=== PATIENT | male | born 1970 | race Caucasian/White ===

== ENCOUNTER 2020-10-29 15:24 | Inpatient (IN) | payer OTHER ==
[~2020-10-29] VITALS: Ht 177.8 cm; Wt 88.0 kg
[2020-10-29 16:31] LABS: BASOPHILS ABSOLUTE AUTO 0.02 K/mm3 (0.00-0.23); BASOPHILS PERCENT AUTO 0 % (0-2); EOSINOPHILS PERCENT AUTO 0 % (0-6); Hematocrit 49.2 % (37.0-53.0); Hemoglobin 17.4 g/dL (13.5-17.5); IMMATURE GRAN ABSOLUTE AUTO 0.04 K/mm3 (0.00-0.10); IMMATURE GRAN PERCENT AUTO 0 % (0-1); LYMPHOCYTES ABSOLUTE AUTO 1.15 K/mm3 (0.84-5.20); LYMPHOCYTES PERCENT AUTO 12 % (21-46); MONOCYTES ABSOLUTE AUTO 0.44 K/mm3 (0.16-1.47); MONOCYTES PERCENT AUTO 5 % (4-13); Mean Corpuscular HGB Conc 35.4 g/dL (31.5-36.5); Mean Corpuscular Volume 93 fL (80-100); Mean Platelet Volume 11.5 fL (9.1-12.4); NEUTROPHILS ABSOLUTE AUTO 8.06 K/mm3 (1.96-9.15); NEUTROPHILS PERCENT AUTO 83 % (41-73); Platelet Count 117 K/mm3 (150-400); RDW Coefficient Variation 13.2 % (11.7-14.2); RDW Standard Deviation 45.3 fL (35.1-46.3); Red Blood Cell Count 5.27 M/mm3 (4.30-5.90); White Blood Cell Count 9.71 K/mm3 (4.00-11.30)
[2020-10-29 17:02] LABS: Albumin, Blood 3.8 g/dL (3.4-5.0); Albumin/Globulin Ratio 0.9 (0.8-1.8); Bilirubin, Total 0.7 mg/dL (0.1-1.0); Bun/Creatinine Ratio 26.5 (12.0-20.0); Calcium, Blood 8.2 mg/dL (8.5-10.1); Creatinine, Blood 1.55 mg/dL (0.60-1.20); Globulin, Blood 4.2 g/dL (2.2-4.0); Potassium, Blood 3.6 mmol/L (3.5-5.5); Troponin I 0.196 ng/mL (0.000-0.040)
[2020-10-29 17:04] LABS: International Normalized Ratio 1.11; Prothrombin Time Results 11.9 Sec (9.7-11.5)
[2020-10-30 04:16] LABS: BASOPHILS ABSOLUTE AUTO 0.02 K/mm3 (0.00-0.23); BASOPHILS PERCENT AUTO 0 % (0-2); EOSINOPHILS ABSOLUTE AUTO 0.26 K/mm3 (0.00-0.68); EOSINOPHILS PERCENT AUTO 3 % (0-6); Hematocrit 46.1 % (37.0-53.0); Hemoglobin 16.4 g/dL (13.5-17.5); IMMATURE GRAN ABSOLUTE AUTO 0.04 K/mm3 (0.00-0.10); IMMATURE GRAN PERCENT AUTO 1 % (0-1); LYMPHOCYTES ABSOLUTE AUTO 1.74 K/mm3 (0.84-5.20); LYMPHOCYTES PERCENT AUTO 20 % (21-46); MONOCYTES ABSOLUTE AUTO 0.33 K/mm3 (0.16-1.47); MONOCYTES PERCENT AUTO 4 % (4-13); Mean Corpuscular HGB 33.1 pg (26.0-34.0); Mean Corpuscular HGB Conc 35.6 g/dL (31.5-36.5); Mean Corpuscular Volume 93 fL (80-100); Mean Platelet Volume 11.9 fL (9.1-12.4); NEUTROPHILS ABSOLUTE AUTO 6.33 K/mm3 (1.96-9.15); NEUTROPHILS PERCENT AUTO 73 % (41-73); Platelet Count 103 K/mm3 (150-400); RDW Coefficient Variation 13.2 % (11.7-14.2); Red Blood Cell Count 4.96 M/mm3 (4.30-5.90); White Blood Cell Count 8.72 K/mm3 (4.00-11.30)
[2020-10-30 04:34] LABS: Alanine Aminotransfer (ALT/SGP 302 U/L (12-78); Albumin, Blood 3.2 g/dL (3.4-5.0); Albumin/Globulin Ratio 0.8 (0.8-1.8); Alk Phos 82 U/L (50-136); Anion Gap 7 mmol/L (6-16); Aspartate Aminotrans (AST/SGOT 196 U/L (12-37); Bilirubin, Total 0.6 mg/dL (0.1-1.0); Blood Urea Nitrogen 32 mg/dL (8-24); Bun/Creatinine Ratio 28.3 (12.0-20.0); CO2, Blood 25 mmol/L (21-32); Calcium, Blood 8.3 mg/dL (8.5-10.1); Chloride, Blood 97 mmol/L (98-108); Creatinine, Blood 1.13 mg/dL (0.60-1.20); Globulin, Blood 4.1 g/dL (2.2-4.0); Glomerular Filtration Rate >60 (60-); Glucose, Blood 152 mg/dL (70-99); Potassium, Blood 3.7 mmol/L (3.5-5.5); Sodium, Blood 129 mmol/L (136-145); Total Protein, Blood 7.3 g/dL (6.4-8.2)
--- NOTE | 2020-10-30 06:46 | NUR ---
ARRIVED TO ICU [address] TO ICU 12 AT 0550 WITH PCU NURSE AND RT. PATIENT ON NRB 15LPM AND NC. PATIENT ALERT AND ABLE TO ANSWER QUESTIONS. PATIENT BEGAN HAVING LARGE AMOUNTS OF VOMITING RED BLOODY EMESIS DARK IN COLOR W/ PIECES OF BRIGHT RED. AFTER MOVED TO ICU BED, PATIENT HAD LARGE LIQUID BROWN BM. HOSPITALIST CONSULTED FOR POSSIBLE INTUBATION; ORDERS RECIEVED FOR NGT TO INT SUCTION W/ POSTPONING OF INTUBATION FOR WORSENING OF CONDITION AND INABILITY TO PROTECT AIRWAY. NGT PLACED AT BEDSIDE TO INTERMITTENT SUCTION W/ DARK RED OUTPUT W/ LARGE CLOTS. PATIENT NOW ON NRB AT 15LPM W/O NC. 18G PERIPHERAL IV IN LW AND 20G PERIPHERAL IV IN RT AC BOTH PATENT. AMIODARONE INF INTO LW. OCTREOTATE INF STARTED INTO RT AC.
[2020-10-30 08:21] LABS: Hemoglobin 17.8 g/dL (13.5-17.5)
[2020-10-30 08:39] LABS: CPK Creatine Kinase 239 U/L (39-308); Cholesterol 212 mg/dL (50-200); Thyroid Stimulating Hormone 0.554 uIU/mL (0.360-4.800); Triglycerides 169 mg/dL (30-160); Triiodothyronine, Free 1.45 pg/mL (2.18-3.98)
[2020-10-30 10:23] LABS: U Amphetamine Screen Not Detected; U Barbituate Screen Not Detected; U Benzodiazapine Screen Not Detected; U Buprenorphine Screen Not Detected; U Cannabinoids Screen Not Detected; U Cocaine Screen Not Detected; U Methadone Screen Not Detected; U Methamphetamine Screen Not Detected; U Opiates Screen Not Detected; U Oxycodone Screen Not Detected; U Phencyclidine Screen Not Detected; U Propoxyphene Screen Not Detected
--- NOTE | 2020-10-30 10:56 | NUR ---
Echocardiogram using 0.50 ml of definity contrast performed.
--- NOTE | 2020-10-30 12:03 | NUR ---
Ethics consultation service requested. Discussion facilitated with the principal regarding his prospective treatment wishes if he ever suffers decompensation and requires mechanical airway support. I explained that in the absence of an objection we would provide aggressive stabilizing therapy by default, but wanted clarification from him as to what his preferences would be, in the event that he was on life support and his condition was worsening, or he was not making reasonable progress and there was no legitimate hope of recovery. The principal confirmed that under such circumstance he would not want to be maintained by life sustaining equipment, but would desire to forgo and or undergo the de-escelation of care. Thank you for this consult. Rip Montalvo ThD
--- NOTE | 2020-10-30 12:42 | NUR ---
REASSESSMENT PT APPEARS TO BE FEELING A LITTLE BETTER THAN AT THE START OF SHIFT AND HE AGREES. AT THE START OF SHIFT HE WAS HAVING AN OCCASIONAL DRY HEAVE/COUGHING EPISODE AND THOSE APPEAR TO HAVE STOPPED AT THIS TIME. HE WAS ALSO STILL QUITE DYSPNEIC AT THE START OF SHIFT AND HAVING DIFFICULTY GETTING SENTENCES OUT. PT'S BREATHING APPEARS MUCH EASIER NOW, BUT HE DOES STILL GET SHORT OF BREATH WHEN HE TRIES TO TALK MORE. HIS LUNGS ARE CLEAR. SR IN THE 90S. ECHO COMPLETED THIS MORNING. PT'S BP WAS 190S/120S THIS AM SO DR. HINOJOSA NOTIFIED AND ORDER FOR HYDRALAZINE GIVEN. PT'S BP CAME DOWN TO THE 160S WITH HYDRALAZINE AND THEN HAS COME DOWN TO THE 130S NOW THAT THE DRY HEAVING HAS LIGHTENED UP. ABD DISTENDED AND BT HYPOACTIVE. NG WITH DARK, OLD BLOOD APPEARING OUTPUT. PT RESWABBED FOR COVID PER DR. ANAYA SINCE HIS TEST WAS OUTPT. CONTINUING TO MONITOR.
[2020-10-30 13:11] LABS: SARS-Cov-2 (COVID-19) PCR, MMC POSITIVE (NEGATIVE)
--- NOTE | 2020-10-30 17:40 | NUR ---
SHIFT SUMMARY PT HAS DONE WELL THIS AFTERNOON WITH NO MORE DRY HEAVING, EMESIS OR COUGHING FITS. OXYGEN HAS BEEN TITRATED DOWN TO 8L VIA HI FLOW NC. PT STILL SEEMS TO HAVE SOME DIFFICULTY TALKING, BUT APPEARS TO BE MORE FROM A SORE THROAT THAN FROM DYSPNEA. LUGNS REMAIN CLEAR. SR WITH RATE IN THE 70S, SBP 130S. NG REMAINS TO LIS WITH DARK, OLD BLOOD APPEARING OUTPUT. PT VOIDING WITHOUT DIFFICULTY. NO OTHER CONCERNS FROM PT AT THIS TIME. CONTINUING TO MONITOR.
[2020-10-30 19:00] LABS: Hematocrit 46.2 % (37.0-53.0); Hemoglobin 16.3 g/dL (13.5-17.5)
[2020-10-30 19:25] LABS: CPK Creatine Kinase 266 U/L (39-308)
[2020-10-31 03:26] LABS: Hematocrit 47.2 % (37.0-53.0); Hemoglobin 16.3 g/dL (13.5-17.5); Mean Corpuscular HGB 32.5 pg (26.0-34.0); Mean Corpuscular HGB Conc 34.5 g/dL (31.5-36.5); Mean Corpuscular Volume 94 fL (80-100); Platelet Count 121 K/mm3 (150-400); RDW Coefficient Variation 13.3 % (11.7-14.2); RDW Standard Deviation 46.3 fL (35.1-46.3); Red Blood Cell Count 5.02 M/mm3 (4.30-5.90); White Blood Cell Count 8.75 K/mm3 (4.00-11.30)
[2020-10-31 03:54] LABS: Bun/Creatinine Ratio 25.6 (12.0-20.0); Calcium, Blood 7.5 mg/dL (8.5-10.1); Creatinine, Blood 1.33 mg/dL (0.60-1.20); Potassium, Blood 4.1 mmol/L (3.5-5.5)
--- NOTE | 2020-10-31 04:37 | NUR ---
Alert, oriented, calm and cooperative. Moves 4 extremities. Respiratory supported by oxymizer at 8L/min. RR mostly around 40. Saturation around 93. Report of a small relief with his breathing. Hemodynamic stable w/o support. SBP around 145. Pulse in normal sinus rhythm, around 90 bpm. Gave urine spontaneously in urinal. Normal outout. Remains NPO. His called, and was updated on his well being.
--- NOTE | 2020-10-31 13:38 | NUR ---
PT DOING WELL. A/0 X4. UP IN ROOM WITH MINIMAL ASSIST. TRANSFERED TO MEDICAL FLOOR ROOM 314 VIA W/C. ON 8L HFNC. ACCOMPANIED BY RN. NO SIGN OF DISTRESS. NO COMPLAINTS.
--- NOTE | 2020-10-31 19:43 | NUR ---
PT STATES DOING WELL SINCE TRANSFER TO FLOOR FROM ICU, NO C.O PAIN FOR ME. HAS BEEN ABOUT ROOM WALKING TO BATHROOM. STATES DOING OKAY WITH THAT. DENIES N/V. PER TELE HAS BEEN NSR WITH BBB AT 70'S. NO OTHER CONCERNS NOTED. BED IN LOW POSITION, FATIMAH L LITE IN REACH, CALLS APPROP
--- NOTE | 2020-11-01 07:09 | NUR ---
SHIFT SUMMARY PATIENT ALERT AND ORIENTED. WAS MEDICATED PER EMAR FOR PAIN AND COUGH. NO ACUTE ISSUES OVERNIGHT. CALL LIGHT WITHIN REACH. REPORT GIVEN TO ONCOMING RN.
[2020-11-01 07:56] LABS: Hemoglobin 15.8 g/dL (13.5-17.5)
[2020-11-01 08:15] LABS: Anion Gap 3 mmol/L (6-16); Blood Urea Nitrogen 37 mg/dL (8-24); Bun/Creatinine Ratio 30.6 (12.0-20.0); CO2, Blood 30 mmol/L (21-32); Calcium, Blood 8.2 mg/dL (8.5-10.1); Chloride, Blood 99 mmol/L (98-108); Creatinine, Blood 1.21 mg/dL (0.60-1.20); Glomerular Filtration Rate >60 (60-); Glucose, Blood 138 mg/dL (70-99); Potassium, Blood 4.7 mmol/L (3.5-5.5); Sodium, Blood 132 mmol/L (136-145)
[2020-11-01 10:22] LABS: Digoxin (Lanoxin) 0.89 ug/mL (0.80-2.00)
--- NOTE | 2020-11-01 15:00 | NUR ---
TELE CALLED DIPPING TO HIGH 40 H/R. BACK TO 50'S. NOTIFIED CORRECTIONAL COOK. HOLDING HEART MEDS TODAY AND SOME CHANGES.
--- NOTE | 2020-11-01 15:20 | NUR ---
SPOKE WITH DR. ANAYA ABOUT PATIENTS HR BETWEEN 50-70. PATIENT IS ASYMPTOMATIC WITH BRADYCARDIA. NEW ORDERS RECEIVED TO START DIGOXIN AND COREG TOMORROW WITH PARAMETERS TO HOLD COREG FOR HR LESS THAN 50.
--- NOTE | 2020-11-01 18:29 | NUR ---
PT DOING WELL TODAY. CONTINUES ON 6L O2. HE AMBULATED SELF TO CROSS VIDAL TO NEW ROOM. DID WELL. DEFINATELY TIRED, SWEATY, BUT DID WELL. SPOKE TO DR DAVIS, UPDATED MEAL TO CARDIAC. PT TOLERATING . HE ALSO WATCHING TV WITH ROOMMATE TODAY. FOOTBALL. BED IN LOW POSITION, CALLLITE IN REACH, CALLS APPROP
--- NOTE | 2020-11-02 04:46 | NUR ---
SHIFT SUMMARY PT DID NOT SLEEP WELL THIS EVENING. WOKEN BY STAFF EARLY IN THE EVENING AND THEN HAD A DIFFICULT TIME GETTING BACK TO SLEEP. MELATONIN GIVEN WITH LITTLE EFFECT. PT REPORTS THAT AT HOME HE IS USUALLY GETTING HOME FROM WORK AT 2-3 IN THE MORNING AND THAT HE DRINKS "A FEW BEERS" TO HELP HIM SLEEP. NO WITHDRAWAL SYMPTOMS NOTED AT THIS TIME. TELEMETRY PER [employer] NSR W/ A BBB MOSTLY IN THE 90'S. PT'S HEART RATE STILL DROPPING DOWN INTO THE 50'S OCCASSIONALLY. PT REPORTS COUGHING UP SMALL AMOUNTS OF BLOOD WHEN COUGHING HARD. MEDICATED W/ COUGH SYRUP X 1. PT DENIES ANY ABD PAIN OR NAUSEA. CONTINUED HTN THIS EVENING OTHERWISE VSS. WILL CONTINUE TO MONITOR.
[2020-11-02 05:30] LABS: Hematocrit 43.2 % (37.0-53.0); Mean Corpuscular HGB 33.3 pg (26.0-34.0); Mean Corpuscular HGB Conc 34.7 g/dL (31.5-36.5); Mean Corpuscular Volume 96 fL (80-100); Platelet Count 172 K/mm3 (150-400); RDW Standard Deviation 46.2 fL (35.1-46.3); White Blood Cell Count 9.45 K/mm3 (4.00-11.30)
[2020-11-02 05:54] LABS: Alanine Aminotransfer (ALT/SGP 167 U/L (12-78); Albumin, Blood 2.7 g/dL (3.4-5.0); Albumin/Globulin Ratio 0.8 (0.8-1.8); Alk Phos 64 U/L (50-136); Anion Gap 3 mmol/L (6-16); Aspartate Aminotrans (AST/SGOT 72 U/L (12-37); Bilirubin, Total 0.6 mg/dL (0.1-1.0); Blood Urea Nitrogen 29 mg/dL (8-24); Bun/Creatinine Ratio 29.4 (12.0-20.0); CO2, Blood 30 mmol/L (21-32); Calcium, Blood 8.1 mg/dL (8.5-10.1); Chloride, Blood 99 mmol/L (98-108); Creatinine, Blood 0.99 mg/dL (0.60-1.20); Globulin, Blood 3.3 g/dL (2.2-4.0); Glomerular Filtration Rate >60 (60-); Glucose, Blood 139 mg/dL (70-99); Potassium, Blood 4.3 mmol/L (3.5-5.5); Sodium, Blood 132 mmol/L (136-145)
[2020-11-02 10:09] LABS: International Normalized Ratio 1.14; Prothrombin Time Results 12.2 Sec (9.7-11.5)
--- NOTE | 2020-11-02 12:57 | NUR ---
0900 called tele. hr has been holding well at 72-73, nsr with occ pvc's . no low rates this am. gave this info to dr heaton at bedside. okayed give all meds. 1100 tele called. states above info not correct. he has been dropping to mid to low 50's as of 1030. am meds were given. pt dropping occ to 49 for few beats. [address] dr no ans. msg box full. requested overhead page. no call back. 1230 pt maintaining in 60 to 70. was 20 min in 50's. dipping to 45 for few secs. called dr again, as long as pt mostly asymptomatic, not concerning. did increase lisinopril. advised tele to call me if h/r below 45. states sgl view okay for xray.
--- NOTE | 2020-11-02 15:44 | NUR ---
per tele h/r continues to fall to 44-43 for few sec, then mid 50's for some time. then when awake, does go to 60-[address] heaton again. orders to d/c andrade dose coreg, make daily only. give lisinopril andrade dose now. for b/p 155/104
--- NOTE | 2020-11-02 17:09 | NUR ---
PT QUITE PLEASANT TODAY. HE HAS HAD SEVERAL TIMES OF DROPPING TO MID 40'S IN H/R. FLEET ADMINISTRATOR WAS CALLED TWICE. NOTIFIED OF RATES. PM MEDS ADJUSTED. PARAMETERS ON COREG PLACED. PT DROPS MOSTLY WHEN SLEEPING, STATES FEELS SOME TIRED, BUT NO OTHER SYMPTOMS. STATES HAS NOT SLEPT WELL ANYWAY. I RECOMMENDED PT NOT TO GO SHOWER TODAY, H/R DROPS, WILL SEE FOR TOMORROW. DONT WANT TELE OFF AT THIS TIME. ALSO RECOMMENDED PT NOT GO IND TO BATHROOM. HAVE SOMEONE WALK JUST IN CASE. PT AGREES. BED IN LOW POSITION, CALL LITE IN REACH, CALLS APPROP
--- NOTE | 2020-11-03 04:39 | NUR ---
SHIFT SUMMARY PT SLEPT A LITTLE BETTER THIS EVENING. STILL WAKING AT TIMES TO USE THE RESTROOM OR WITH A COUGH BUT APPEARS OVERALL MORE RESTED. NAGGING COUGH INTERMITTENTLY. MEDICATED PER EMAR. PT REMAINED ON 6 L VIA NC. TELEMETRY SINUS ERI TO SINUS RHYTHM WITH A BBB RATE MOSTLY FROM THE 50'S TO THE 70'S BUT PT DID HAVE SEVERAL TIMES EARLY IN THE MORNING WHILE SLEEPING WHERE HE WAS DOWN IN THE 40'S. ABD IS DISTENDED. PT REPORTS DAILY ETOH USE AT HOME. NO WITHDRAWALS NOTED. VITAL SIGNS STABLE. NO COMPLAINTS OF PAIN OR NAUSEA. WILL CONTINUE TO MONITOR.
[2020-11-03 05:02] LABS: Hematocrit 42.6 % (37.0-53.0); Hemoglobin 14.9 g/dL (13.5-17.5); Mean Corpuscular HGB 33.1 pg (26.0-34.0); Mean Corpuscular Volume 95 fL (80-100); Platelet Count 233 K/mm3 (150-400); RDW Coefficient Variation 12.8 % (11.7-14.2)
[2020-11-03 05:19] LABS: Anion Gap 2 mmol/L (6-16); Blood Urea Nitrogen 27 mg/dL (8-24); Bun/Creatinine Ratio 27.5 (12.0-20.0); CO2, Blood 31 mmol/L (21-32); Calcium, Blood 8.3 mg/dL (8.5-10.1); Chloride, Blood 101 mmol/L (98-108); Creatinine, Blood 0.98 mg/dL (0.60-1.20); Glomerular Filtration Rate >60 (60-); Glucose, Blood 117 mg/dL (70-99); Potassium, Blood 4.5 mmol/L (3.5-5.5); Sodium, Blood 134 mmol/L (136-145)
--- NOTE | 2020-11-03 16:56 | NUR ---
dr requested contact be made with cardio dr, card called stated he would write a note so dr could evaluate, home ev completed in progress notes, pt was able to walk in rm on room air, stayed above 90 most of the time only dropping to 88% briefly while walking, denied sob or dizzieness
--- NOTE | 2020-11-03 20:34 | NUR ---
a+o, rm air, saline locked, ready to go home just waiting for dr's orders, report shared with noc nurse
--- NOTE | 2020-11-04 06:59 | NUR ---
SHIFT SUMMARY PATIENT ALERT AND ORIENTED. MEDICATED PER EMAR FOR PAIN. NO COMPLAINTS OF SHORTNESS OF BREATH. A 500 ML BOLUS WAS ADMINISTERED FOR LOW BP. PICC LINE PATENT AND FLUSHED. BED IN LOWEST POSITION WITH WHEELS LOCKED AND ALARM ON. CALL LIGHT WITHIN REACH. REPORT GIVEN TO ONCOMING RN.
--- NOTE | 2020-11-04 07:22 | NUR ---
SHIFT SUMMARY PATIENT ALERT AND ORIENTED. MEDICATED PER EMAR FOR SLEEP. NO COMPLAINTS OF PAIN OR SHORTNESS OF BREATH. NO ACUTE ISSUES NOTED OVERNIGHT. CALL LIGHT WITHIN REACH. REPORT GIVEN TO ONCOMING RN.
[2020-11-04] MEDS ORDERED: Amiodarone HCl200 MG PO (11:09)
[2020-11-04] MEDS ORDERED: CARV3.125 PO (11:10)
[2020-11-04] MEDS ORDERED: LANOXIN125 MCG PO (11:11)
[2020-11-04] MEDS ORDERED: EPLE25 PO (11:12)
[2020-11-04] MEDS ORDERED: LISI5 PO (11:13)
[2020-11-04] MEDS ORDERED: TORSE20 PO (11:14)
[2020-11-04] MEDS ORDERED: DEXA6 PO (11:14)
[2020-11-04] MEDS ORDERED: OMEP20ER PO (11:15)
[2020-11-04] MEDS ORDERED: XARELTO20 MG PO (11:16)
--- NOTE | 2020-11-04 13:51 | NUR ---
PT IS A&O, PLEASANT AND C/O. SITTING IN CHAIR AT BS AT START OF SHIFT, WANTING TO GO HOME. DR HINOJOSA IN TO SEE PT. DISCUSSED PLAN OF CARE. PT MEDICALLY STABLE AND WANTING TO GO HOME. D/C ORDERS PLACED. PT INDEPENDENT IN AND TO [facility]. IV SITE REMOVED FROM LW. D/C ORDERS AND INSTRUCTIONS REVIEWED WITH PT. VERBALIZED UNDERSTANDING. MEDS FAXED TO [facility] IN [place] PER PT REQUEST. PT ASSISTED OUT TO 'S CAR VIA W/C BY MILAD[facility].
== END 2020-11-04 12:19 | disposition home or self-care (01) | DRG 177 ==
LOC: ER 15:24 → ICUW 18:39 → MEDS 18:39 → ERHOLD 18:39 → PCU 18:39 → ICUW 10-30 05:40 → MEDS 10-31 14:22
PROVIDERS: Emergency Medicine Emergency Medical Services; Internal Medicine; Internal Medicine Cardiovascular Disease; Internal Medicine Gastroenterology; ADMIT Family Medicine
PROC: 8E0ZXY6 Isolation (ICD-10-PCS; principal; 2020-10-30)
PROC: 3E0333Z Introduction of Anti-inflammatory into Peripheral Vein, Percutaneous Approach (ICD-10-PCS; 2020-10-30)
PROC: XW033E5 Introduction of Remdesivir Anti-infective into Peripheral Vein, Percutaneous Approach, New Technology Group 5 (ICD-10-PCS; 2020-10-30)
DX: U07.1 COVID-19 (principal); J12.82 Pneumonia due to coronavirus disease 2019; J96.01 Acute respiratory failure with hypoxia; I42.9 Cardiomyopathy, unspecified; I47.2 Ventricular tachycardia; E87.1 Hypo-osmolality and hyponatremia; N17.9 Acute kidney failure, unspecified; I50.32 Chronic diastolic (congestive) heart failure; K92.2 Gastrointestinal hemorrhage, unspecified; I44.7 Left bundle-branch block, unspecified; R79.89 Other specified abnormal findings of blood chemistry; Z98.890 Other specified postprocedural states; Z79.899 Other long term (current) drug therapy; Z88.8 Allergy status to other drugs, medicaments and biological substances; Z88.6 Allergy status to analgesic agent; D69.6 Thrombocytopenia, unspecified; F10.10 Alcohol abuse, uncomplicated; I48.0 Paroxysmal atrial fibrillation
CPT/HCPCS: 36415; 71045; 74177; 78472; 80048; 80053; 80162; 82465; 82550; 82947; 83690; 83880; 84443; 84478; 84481; 84484; 85014; 85018; 85025; 85027; 85379; 85610; 93005; 93010; 94762; 96365; 96368; 99284-25; A9270; A9560; C8929; C9113; J0282; J0360; J0696; J1100; J1160; J1650; J2354; J2405; J3475; J7030; J7040; J7050; J7060; Q9957; Q9967; U0004

== ENCOUNTER 2020-11-25 09:00 | Day surgery (SDC) | payer OTHER ==
[~2020-11-25 09:00] MED LIST: Amiodarone HCl200 MG PO; CARV3.125 PO; DEXA6 PO; EPLE25 PO; LANOXIN125 MCG PO; LISI5 PO; OMEP20ER PO; TORSE20 PO; XARELTO20 MG PO
--- NOTE | 2020-11-25 09:40 | NUR ---
Ambulatory in Day Surgery. History, Chart, Medications and Allergies reviewed before start of procedure. Patient confirms NPO status EXCEPT SODA CAFIENE FREE WITH MEDICATIONS THIS MORNING. and agrees with scheduled surgery.
--- NOTE | 2020-11-25 10:17 | NUR ---
Patient up to Ambulate independently. Gait steady. Discharge instructions reviewed with patient. Patient verbalizes understanding. Copy given to patient to take home.AMBULATORY AT DISCHARGE TO PRIVATE CAR.
== END 2020-11-25 23:31 | disposition home or self-care (01) ==
LOC: CT 09:00 → ORSCMMR 09:00 → ORD 09:00 → ORSCMMR 09:01 → ORD 09:30 → ORSCMMR 09:30 → CT 10:00 → ORSCMMR 23:31
DX: I42.0 Dilated cardiomyopathy (principal); I11.0 Hypertensive heart disease with heart failure; I50.9 Heart failure, unspecified; I48.0 Paroxysmal atrial fibrillation; I44.7 Left bundle-branch block, unspecified; Z88.5 Allergy status to narcotic agent; Z88.8 Allergy status to other drugs, medicaments and biological substances; Z79.899 Other long term (current) drug therapy; Z79.01 Long term (current) use of anticoagulants
CPT/HCPCS: 75574; Q9967

== ENCOUNTER → 2024-11-22 | Outpatient (CLI) | payer OTHER ==
[~2024-11-22] MED LIST changes: +ROSUVASTATIN CA40 MG PO
[2024-11-22 13:22] LABS: WBC Count, Synovial Fluid 48600 /mm3 (0-180)
[2024-11-22 14:34] LABS: RBC Count, Synovial Fluid 150 /mm3 (0-0)
[2024-11-22 15:30] LABS: Lymphs, Synovial Fluid 1 % (0-15); Monocytes/Macrophages, Synovia 10 % (0-65); Neutrophils, Synovial Fluid 89 % (0-24)
[2024-11-22 15:32] LABS: Appearance, Synovial Fluid Cloudy (Clear); Color, Synovial Fluid Pale Yellow (None-P Yel)
== END ==
LOC: LAB 11:20 → LAB SHORT 11:20
PROVIDERS: Nurse Practitioner
DX: M11.262 Other chondrocalcinosis, left knee (principal)
CPT/HCPCS: 87070; 87075; 87205; 89051; 89060

== ENCOUNTER 2024-11-23 06:08 | Day surgery (SDC) | payer OTHER ==
[~2024-11-23] VITALS: Ht 177.8 cm; Wt 87.8 kg
[~2024-11-23 06:08] MED LIST changes: -ROSUVASTATIN CA40 MG PO
[2024-11-23] MEDS ORDERED: Lidocaine 2%-Epineph 1:100000 20 ML MDV ONE (07:01)
[2024-11-23] MEDS ORDERED: ROSUVASTATIN CA40 MG PO (07:04)
--- NOTE | 2024-11-23 07:14 | NUR ---
11/23/24 0714 Lianne Haro PT STATES HE CHEWED SOME TOBACCO THIS MORNING. DR OROSCO INFORMED AND HE IS OK TO PROCEED WITH SURGERY.
[2024-11-23] MEDS ORDERED: CeFAZolin Sodium 2,000 MG VIAL ONE (07:20)
[2024-11-23] MEDS ORDERED: SuccINYLCHOLINE Chloride 100 MG/5 ML 5MLSYR ONE (07:28)
[2024-11-23] MEDS ORDERED: FentaNYL Citrate 50 MCG/ML 2 ML Injection ONE ×3 (07:29→09:28)
[2024-11-23] MEDS ORDERED: Ondansetron HCl 2 MG / ML 2ML Vial ONE (07:40)
[2024-11-23] MEDS ORDERED: Dexamethasone Sod Phos 10 MG/ML 1ML VIAL ONE (07:40)
--- NOTE | 2024-11-23 09:00 | NUR ---
11/23/24 0900 JOHN SAMS SHELLY DRAIN TO OP SITE 12.5ML SEROUS FLUID LIGHT RED/CHAY SOFT CDI
[2024-11-23 09:33] VITALS: BP 174/86
== END 2024-11-23 10:18 | disposition home or self-care (01) ==
LOC: ORSCSDS 06:08
PROVIDERS: Orthopaedic Surgery
PROC: 0S9D4ZZ Drainage of Left Knee Joint, Percutaneous Endoscopic Approach (ICD-10-PCS; principal; 2024-11-23 07:30)
DX: M25.462 Effusion, left knee (principal); M17.12 Unilateral primary osteoarthritis, left knee; M11.262 Other chondrocalcinosis, left knee; I10 Essential (primary) hypertension; E78.5 Hyperlipidemia, unspecified; F17.220 Nicotine dependence, chewing tobacco, uncomplicated; Z79.899 Other long term (current) drug therapy
CPT/HCPCS: J0166; J0330; J0690; J1100; J2405; J2704; J3010; J7120

== ENCOUNTER 2025-01-23 13:07 | Day surgery (SDC) | payer OTHER ==
[~2025-01-23] VITALS: Ht 177.8 cm; Wt 86.8 kg
[~2025-01-23 13:07] MED LIST changes: +ATOR80 PO; +CARV6.25 PO; +CYMBALTA60 M1 PO; +ENTRESTO 97 MG1 EACH PO; +ROSUVASTATIN CA40 MG PO; +SPIR25 PO; +ZYRTEC10 M2 PO
[2025-01-23 13:38] VITALS: BP 144/86
--- NOTE | 2025-01-23 13:55 | NUR ---
Ambulatory in Day SurgeryPre-Op teaching done. Pt verbalizes understanding. History, Chart, Medications and Allergies reviewed before start of procedure.Patient confirms NPO status and agrees with scheduled surgery.LAST PO INTAKE AT 1215. APPLE JUICE. Patient States Post-Procedure ride home has been arranged. PT WAS SEEN BY LAND INSPECTOR YESTERDAY AND GIVEN RX FOR COREG, AMIODERORNE AND KATHY BUT HAS NOT STARTED THESE MEDS YET. PT SCHEDULED FOR ANGIOGRAM ON 02/11/25 Patient States Post-Procedure ride home has been arranged.
--- NOTE | 2025-01-23 14:05 | NUR ---
DR. WONG HERE FOR ANESTHESIA CONSULT R/T PT'S CARDIAC ISSUES. HE SPOKE TO DR. QUINTERO AND DR. QUINTERO FEELS LIKE THIS IS A LOW RISK PROCEDURE FOR THE PT. WILL PROCEED W/ MAC SEDATION FOR PROCEDURE.
--- NOTE | 2025-01-23 14:59 | NUR ---
01/23/25 1459 Mimi Trivedi CONFIRMED AND REVIEWED H&P, MEDCICATIONS, ALLERGIES, MEDICAL HISTORY, RESPIRATORY HISTORY, VITAL SIGNS, 3-LEAD EKG, CONSENTS, AND PHYSICIAN ORDERS. PATIENT CONFIRMS NPO STATUS AND AGREES WITH SCHEDULED PROCEDURE. MONITOR INTACT WITH CONTINUOUS PULSE OXIMETRY, CAPNOGRAPHY, 3-LEAD EKG, INTERMITTENT BP. SUPPLEMENTAL O2 TO BE TITRATED THROUGHOUT PROCEDURE TO MAINTAIN O2 SATURATION ABOVE 90%. PATIENT DETERMINED TO BE ASA APPROPRIATE FOR MAC.SEE ANESTHESIA RECORD.
[2025-01-23 15:36] VITALS: BP 116/71
[2025-01-23 15:44] VITALS: BP 150/72
--- NOTE | 2025-01-23 16:07 | NUR ---
Discharge instructions reviewed with patient. Patient verbalizes understanding. Copy given to patient to take home. Patient States Post-Procedure ride home has been arranged. Discharged via wheelchair to private car for ride home.
== END 2025-01-23 16:00 | disposition home or self-care (01) ==
LOC: ORSCMMR 13:07 → ORD 14:30 → ORSCMMR 16:00
PROVIDERS: Family Medicine
PROC: 0DJD8ZZ Inspection of Lower Intestinal Tract, Via Natural or Artificial Opening Endoscopic (ICD-10-PCS; principal; 2025-01-23 14:30)
DX: Z12.11 Encounter for screening for malignant neoplasm of colon (principal); E78.5 Hyperlipidemia, unspecified; I10 Essential (primary) hypertension; M79.7 Fibromyalgia; I42.9 Cardiomyopathy, unspecified; Z79.01 Long term (current) use of anticoagulants; Z79.899 Other long term (current) drug therapy; F17.200 Nicotine dependence, unspecified, uncomplicated
CPT/HCPCS: J2704; J7120